=== PATIENT | male | born 2000 | race Caucasian/White ===

== ENCOUNTER 2021-06-22 09:53 | Outpatient (CLI) | payer OTHER ==
[2021-06-22] MEDS ORDERED: PROPOFOL 20 ML ONE ×2 (11:10→12:15)
== END 2021-06-22 09:54 | disposition home or self-care (01) ==
LOC: CSHULT 09:53
PROVIDERS: ATTEND Internal Medicine Gastroenterology
DX: R10.9 Unspecified abdominal pain (principal)
CPT/HCPCS: 76700; J2704